=== PATIENT | male | born 2000 ===

== ENCOUNTER 2024-03-29 18:17 | Emergency (ER) | payer OTHER, BC ==
[2024-03-29] MEDS: Acetaminophen 500 MG Tab PO ONE (18:54)
== END 2024-03-29 19:50 | disposition home or self-care (01) ==
LOC: MW.ED 18:17
DX: R51.9 Headache, unspecified (principal); R11.0 Nausea; F17.210 Nicotine dependence, cigarettes, uncomplicated; Z79.899 Other long term (current) drug therapy; Z75.8 Other problems related to medical facilities and other health care; V49.49XA Driver injured in collision with other motor vehicles in traffic accident, initial encounter; Y93.89 Activity, other specified
CPT/HCPCS: 70450; 70486; 99284; A9270; 99283